=== PATIENT | female | born 1985 | race Caucasian/White ===

== ENCOUNTER → 2016-11-29 | Outpatient (CLI) | payer OTHER ==
[~2016-11-29] MED LIST: PRENTAB69 PO
== END | disposition home or self-care (01) ==
LOC: C.PAPS 08:30
PROVIDERS: ATTEND Obstetrics & Gynecology
DX: Z12.4 Encounter for screening for malignant neoplasm of cervix (principal)

== ENCOUNTER → 2017-12-03 | Outpatient (CLI) | payer OTHER | END | disposition home or self-care (01) | LOC: C.LABSPEC 15:06 | PROVIDERS: ATTEND Obstetrics & Gynecology | DX: R30.0 Dysuria (principal) ==

== ENCOUNTER 2023-06-28 08:27 | Observation (INO) ==
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
[~2023-06-28 08:27] MED LIST changes: +LACTATED RINGER'S 1,000 ML IV SCH; +LR 15ML/HR IV SCH; -PRENTAB69 PO
[2023-06-28] MEDS ORDERED: LIDOCAINE 2% 2 ML VIAL/AMP(20MG/ML) INFIL ONE (09:07)
[2023-06-28] MEDS ORDERED: DEXAMETHASONE SOD INJ 4 MG/ML VIAL ONE (09:07)
[2023-06-28] MEDS ORDERED: ONDANSETRON INJ 2 MG/ML 2 ML VIAL ONE ×2 (09:07→17:30)
[2023-06-28] MEDS ORDERED: PROPOFOL IV EMULSION 10 MG/ML 20 ML VIAL IV ONE ×2 (09:07→16:19)
[2023-06-28] MEDS ORDERED: MIDAZOLAM HCL 1 MG/ML 2ML VIAL ONE ×2 (09:08→10:05)
[2023-06-28] MEDS ORDERED: fentaNYL citrate PF 100 MCG/2 ML VIAL ONE ×5 (09:08→19:42)
[2023-06-28] MEDS ORDERED: LORazepam 0.5 MG TAB PO STA (10:27)
[2023-06-28] MEDS ORDERED: ONDANSETRON INJ 2 MG/ML 2 ML VIAL IV PRN (11:31)
[2023-06-28] MEDS ORDERED: HYDROmorphone INJ 2 MG/ML SYR/VIAL IV PRN (11:31)
[2023-06-28] MEDS ORDERED: ATROPINE SULFATE 0.1 MG/ML 10ML SYR IV PRN (11:31)
[2023-06-28] MEDS ORDERED: fentaNYL citrate PF 100 MCG/2 ML VIAL IV PRN (11:31)
[2023-06-28] MEDS ORDERED: ePHEDrine sulfate 50 MG/ML AMP IV PRN (11:31)
--- NOTE | 2023-06-28 12:33 | History & Physical Bridge Note ---
Date of Service June 28, 2023 History & Physical Bridge Note I have examined the patient, reviewed the History & Physical and in the interval since the performance of the History & Physical I have noted the following changes of clinical significance: no changes noted. Patient presents for b/l mastectomy with right SLNB. The consent has been reviewed and is on the chart.
[2023-06-28] MEDS ORDERED: ISOSULFAN BLUE 10 MG/ML VIAL 5 ML ONE (12:42)
[2023-06-28] MEDS: ceFAZolin 2000MG 2,000 MG/15 ML SYR IV SCH ×2 (12:50→17:08)
[2023-06-28] MEDS ORDERED: HYDROmorphone INJ 1 MG/ML SYRINGE ONE ×2 (13:55→17:31)
[2023-06-28] MEDS: BUPIVACAINE/EPINEPHRINE 0.5% MPF 1:200,000 30 ML VIAL ONE ×2 (16:16→17:20)
[2023-06-28] MEDS ORDERED: ceFAZolin 330 MG/ML 1 GM VIAL ONE (16:19)
[2023-06-28] MEDS ORDERED: SUGAMMADEX SODIUM 200 MG/2 ML VIAL IV ONE (18:47)
[2023-06-28] MEDS ORDERED: METOCLOPRAMIDE HCL INJ 5 MG/ML 2 ML VIAL ONE (19:43)
--- NOTE | 2023-06-28 20:07 | Operative Report ---
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 I identified the patient and participated in the time-out.: Yes Procedure Operation Date: 06/28/23 10:05 Actual Procedures p Bilateral Breast Mastectomy with Right [place] Lymph Node Biopsy (Injection done 06/27 @ 1300)(Bilateral) - Ifeoma Zimmerman DO Surgeon Ifeoma Zimmerman DO Tie In Hand No surgical nurse Estimated Blood Loss 50 Findings See Below Specimens Right sentinel lymph node biopsy Right breast tissue Left breast tissue Drains Right breast 10Fr RONI Left breast 10FR RONI Anesthesia Type General Indications Right breast multifocal cancer Description of Procedure The patient is brought back to the operating room placed on the operating room table in supine position. She was connected to cardiac and oxygen monitoring. SCDs were applied to bilateral lower extremities. The patient was administered general anesthesia and a secure airway was obtained. Lymphazurin blue was injected at the right subdermal lymphatics retroareolar location. The anterior chest wall was prepped, the right anterior thorax and right axilla were draped and typical sterile fashion. The neoprobe was used to identify the location of the right axillary sentinel lymph node. Local anesthetic was injected into the skin at this location and an incision was made using a 15 blade. The subcutaneous tissues were dissected to the clavipectoral fascia. Using the neoprobe as a guide, cautery dissection continued to identify a blue and hot to the right axillary lymph node. This lymph node had an in vivo counts of 209 and an ex vivo count of 200. This lymph node was removed and sent to pathology for further analysis the wound was copiously irrigated. Hemostasis was achieved with cautery. The deeper axillary tissues were reapproximated using 3-0 Vicryl suture. Deep dermis was reapproximated using 3-0 Vicryl suture. The skin was closed with 4-0 Vicryl suture. Attention was then turned to the right breast where an optical excision was made around the central portion of the breast then nipple areolar complex. Local anesthetic was injected into the skin and subcutaneous tissues. A skin incision was made with a 15 blade and flaps were elevated using cautery superiorly inferiorly medially and laterally. These flaps were carried out to the peripheral landmarks for complete breast excision. The mammary lobular tissue was dissected posteriorly to the back to relax muscle. The right breast was elevated from the underlying musculature using cautery dissection. Bleeding along the way was controlled with cautery and or silk ties. The right breast was completely removed. The breast was tagged with a silk suture superiorly and the skin marking the anterior margin. This was sent to pathology for further analysis. The area was copiously irrigated and dried. The wound bed was checked for hemostasis. Once hemostasis was adequately achieved a 10 [place] drain was inserted. The drain was secured in place with nylon suture. The dermis was reapproximated using 3-0 Vicryl suture. The skin was closed with 4-0 Vicryl suture. The skin incision was sealed with Dermabond. The right axillary skin incision was also sealed with Dermabond. A new instrument tray and set up was opened, the left breast was reprepped and draped in typical sterile fashion. Similarly an elliptical incision was drawn at the central aspect of the left breast around the nipple areolar complex. An incision was made with a 15 blade. Skin flaps were elevated using cautery superiorly, inferiorly, medially and laterally. Again the flaps were carried out to landmarks to fox the extent of breast tissue. The mammary lobular tissue was again dissected posteriorly to the underlying musculature. The left breast was elevated away from the chest wall using cautery. Hemostasis was kept along the way using alternating cautery and or suture ligation. The left breast was completely removed. The specimen was tagged with a silk suture superiorly, and the skin surfaces anterior margin. The specimen was placed in a labeled container and sent to pathology for further analysis. The wound was copiously irrigated and dried. Again the area was checked for hemostasis. Once hemostasis was adequate a 10 [place] drain was inserted. The deep dermis was reapproximated using 3-0 Vicryl suture. The skin was approximated using 4-0 Vicryl suture. The skin incision was sealed with Dermabond. The patient tolerated the procedure well. She was awakened from anesthesia, the secure airway was removed. The chest mastectomy sites were dressed with fluffy gauze, ABD and wrapped with an Gianluca wrap. The patient was straight cathed prior to being transported to recovery. She was transferred to recovery in stable condition. I attest to the content of the Intraoperative Record and any orders documented therein. Any exceptions are noted below.
[2023-06-28] MEDS ORDERED: ACETAMINOPHEN 325 MG TAB PO PRN (20:18)
[2023-06-28] MEDS ORDERED: oxyCODONE HCL IR 5 MG TAB (IMMEDIATE RELEASE) PO PRN (20:18)
--- NOTE | 2023-06-28 20:34 | Anesthesiology Progress Note ---
Date of Service June 28, 2023 Anesthesia Post Procedure Vital Signs Vital Signs: Temp Pulse Pulse Resp BP Pulse Ox O2 Del Method 06/28/23 20:25 36.6 C 101 H 12 124/72 96 Room Air 06/28/23 20:15 107 H 16 122/79 96 Room Air 06/28/23 20:05 109 H 16 123/76 95 Room Air 06/28/23 19:55 113 H 16 135/87 100 Room Air 06/28/23 19:48 37.3 C 112 H 18 124/78 99 Oxymask 06/28/23 09:14 36.8 C 98 H 20 137/86 10 L Room Air O2 Flow Rate 06/28/23 20:25 06/28/23 20:15 06/28/23 20:05 06/28/23 19:55 06/28/23 19:48 7 06/28/23 09:14 Transfer of Care Handoff Completed per policy Notes Mental Status: alert / awake / arousable and participated in evaluation Patient Amnestic to Procedure: Yes Nausea / Vomiting: adequately controlled Pain: adequately controlled Airway Patency, RR, SpO2: stable & adequate BP & HR: stable & adequate Hydration State: stable & adequate Anesthetic Complications: no major complications apparent
[2023-06-28] MEDS ORDERED: ALPRAZolam 0.25 MG TABLET PO PRN (21:20)
--- NOTE | 2023-06-29 05:41 | Surgery Progress Note ---
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 Discharge today Admission and Anticipated Discharge Date Admission Date: June 28, 2023 Subjective Patient is resting comfortably in bed. She notes her pain is well-controlled. Since surgery she has tolerated clear liquids without nausea or vomiting. She notes that she does not feel very hungry at the present time. She does not offer any additional complaints at this time. Physical Exam Physical Exam: Bilateral RONI drains are in place draining serosanguineous fluid. The left drain is drained 85 cc since surgery and the right drain has drained 100 cc since surgery. As the patient's surgery was just completed less than 12 hours ago her dressings were not removed during a.m. rounds. Respiratory: normal respiratory effort; no respiratory distress and no labored breathing Cardiovascular: Rate/Rhythm: regular rate, regular rhythm and + tachycardic (Heart rate in the 90s) Results & Data Vital Signs (Past 12 Hours) Vital Signs Temp Pulse Resp BP Pulse Ox O2 Del Method O2 Flow Rate 06/29/23 04:15 36.7 C 96 H 18 111/71 96 Room Air 06/28/23 23:50 36.8 C 107 H 20 126/78 99 Room Air 06/28/23 23:01 36.6 C 102 H 18 104/51 L 97 Room Air 06/28/23 21:54 36.4 C L 105 H 18 123/78 96 Room Air 06/28/23 21:20 36.6 C 102 H 20 128/78 99 Room Air 06/28/23 20:50 37.0 C 96 H 20 132/73 95 Room Air 06/28/23 20:35 105 H 16 146/79 H 97 Room Air 06/28/23 20:25 36.6 C 101 H 12 124/72 96 Room Air 06/28/23 20:15 107 H 16 122/79 96 Room Air 06/28/23 20:05 109 H 16 123/76 95 Room Air 06/28/23 19:55 113 H 16 135/87 100 Room Air 06/28/23 19:48 37.3 C 112 H 18 124/78 99 Oxymask 7 PG Care Time/CCT Total # of Minutes Spent Total Time Spent with Patient: Total time spent is greater than 50% in coordination of care (as documented) at patient's floor/unit and/or counseling patient: Coding Level of Care Code 22757 Post Operative Follow-Up Diagnoses 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
--- NOTE | 2023-06-29 09:01 | Discharge Summary ---
Date of Service June 29, 2023 Admission HPI Per Admitting Provider Newly diagnosed right breast cancer. S/p b/l mastectomy with right SLNB and b/l RONI drain insertion. Patient was admitted for extending observation as the procedure started later in the day and ended in the evening. The patient was admitted to monitor HD o/n, and nursing education. She remained HD stable. Did well with anesthesia and this am is without nausea, vomiting, F/C. She is tolerating oral intake and feels good to go home. RONI drains with serosanguinous drainage. Principal Diagnosis Upper outer and inner right breast cancers Discharge Exam Constitutional healthy appearing; not ill appearing, not in distress and not diaphoretic Respiratory normal respiratory effort; no respiratory distress, no labored breathing and does not use accessory muscles Chest (Breasts) Additional Comments: Surgical wrap and bandages in place. The area surrounding was examined. There is no evidence of bruising extending from around the bandages. The bandages are dry and clean. There is no swelling. RONI drains are functioning with serosanguinous drainage that is thinning out. Neurologic moves all extremities and awake; not confused and not obtunded Patient has h/o significant anxiety and was given Ativan overnight but feels more relaxed this am. 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 Nurse education for drain management at home. Surgeon care recommendations are documented in the discharge instructions - Continue surgical bandages. 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 No raising your arms above your head for 1 week Lifting: No more than 10 pounds Bathing: Keep incision dry Bathing Comment: No shower or bathing Exercise/Sports: Wait until after follow-up appointment Non-emergency contact: Surgeon Call non-emergency contact if: you have any medication questions, your pain is worsening, your pain is unusual for you, your temperature is above 101, your wound has increased redness, your wound has increased drainage and your wound pain has increased Follow-up/Referrals: Rojas Marcus MD [Primary Care Provider] - Ifeoma Zimmerman, [Physician] - (call office for a follow up appointment in 2 weeks ) Diet: Regular Addtl Attending Provider Instructions: You have skin glue over your incisions called dermabond. It will tend to dissolve and fall off within a couple weeks. Do not pick at the skin glue You may purchase Tylenol over the counter if needed for additional pain control over the next few days. Take per manufacturers instructions. Pain medication has also been prescribed which you may take as indicated on the instructions. Avoid NSAIDS such as Ibuprofen/Mortin, Aspirain, Advil until follow up. Please wear your compression bandages day and night for the next 2 weeks. Please apply Ice to surgical area on for 15 minutes off for 15minutes on over the next few days. Measure RONI drainage daily and record for office review. Please milk your drains once per day starting Saturday. Please do NOT shower or get the RONI drains wet at all. Keep the bulb, tubing and surgical sites away from tap water completely. Pending Studies at Discharge: Yes Studies:: surgical pathology Stand-Alone Forms: My [facility] Skilled Items Discharge Level of Care: Other Communicable Disease: No Discharge Prognosis: Stable Urinary Catheter: No Medications and DC Order Prescriptions: New oxycodone 5 mg Tablet 5 mg PO Q4H PRN (Reason: pain) Qty: 20 0RF Continued sertraline 25 mg tablet 25 mg PO QAM omeprazole 20 mg capsule,delayed release(DR/EC) 20 mg PO QAM Discharge Orders: Discharge Order (Routine); Ordered 06/29/23 Ordered By: Ifeoma Zimmerman Admission Data Admit Date/Time: 06/28/23 19:54 Attending Provider: Ifeoma Zimmerman Admit Provider: Ifeoma Zimmerman Primary Care Provider: Rojas Marcus Coding Level of Care Code 70675 IN/OBS DISCH 30 MIN/LESS Diagnoses 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
== END 2023-06-29 10:37 | disposition home or self-care (01) ==
LOC: 3N 08:27 → ASU 08:27